=== PATIENT | male | born 1980 | race Caucasian/White ===

== ENCOUNTER 2018-04-11 22:53 | Emergency (ER) | payer BC ==
[2018-04-11 23:29] VITALS: RESP 18; TEMP 96.8; O2SAT 98
[2018-04-11] MEDS ORDERED: AMOXICILLIN 250 MG CAP PO ONE (23:33)
[2018-04-11] MEDS ORDERED: AMOXICILLIN(FRIDGE) 125/5 ML BOTTLE ONE (23:38)
[2018-04-11] MEDS ORDERED: AMOXICILLIN 125/5 ML BOTTLE PO ONE (23:41)
[2018-04-12 00:04] VITALS: BP 163/96; PULSE 82
== END 2018-04-12 00:01 | disposition home or self-care (01) ==
LOC: ED 22:53
DX: H66.92 Otitis media, unspecified, left ear (principal); F17.210 Nicotine dependence, cigarettes, uncomplicated
CPT/HCPCS: 99282; 99283; A9270-GY